=== PATIENT | male | born 1940 | race Caucasian/White ===

== ENCOUNTER 2022-05-10 00:33 | Day surgery (SDC) | payer MEDICARE, SELFPAY ==
[2022-05-10] VITALS (10 sets, daily range): BP systolic 113–138; BP diastolic 49–69; PULSE 56–107; RESP 12–20; TEMP 36–36.4; O2SAT 96–100; BMI 25.8
--- NOTE | 2022-05-10 07:25 | WPDHPUPDATE1 ---
History and Physical Update Update Date/Time: 05/10/22 07:25 History and Physical has been reviewed, including an updated exam of the patient. There are NO changes in the patient's condition. Risks, benefits, and alternatives have been discussed and questions answered. Patient agrees to proceed with procedure.
--- NOTE | 2022-05-10 08:34 | PC.NURSE ---
Report to the Outpatient Waiting Room, entrance under the green pavilion located off [facility], at time _1115_ on date _05/10/22_. Planned Procedure Time: _1:15 PM_. Time changes happen often and if your time is changed the preop area will call you the afternoon before. - You and your visitor will be asked to self-screen and do not enter if you have any COVID symptoms. - We encourage only one visitor and NO visitors under age 16 are allowed at this time. Your visitor will receive communication by the phone number that is given day of service. - The patient visitor is requested to social distance or may leave the building when not with patient due to restrictions. - A mask is required within the hospital. Patients may have clear liquids (water, carbonated beverages, clear teas, apple juice) until 3 hours prior to surgery (1015 AM) with a maximum of 20 ounces. - No food from midnight until time of surgery - Infants may have breast milk until 4 hours before surgery, formula 6 hours prior to surgery. - Children will be allowed to drink immediately following surgery. If applicable, please bring a bottle or sippy cup to assist with drinking. Juice, water, soda, and popsicles are readily available. For infants on formula, please bring formula the day of surgery. Pacifiers are allowed. Take the following medications with a SIP of water the morning of surgery: __AMLODIPINE, METOPROLOL__ Medications to discontinue per physician _PT STATES NOT RECEIVING MED INSTRUCTIONS - LAST ASPIRIN DOSE 05/09/22__ Date to take last dose Please no make-up, nail yoruba, hairspray, perfume, deodorant, or body powder the day of surgery. No jewelry (including any body piercings) or valuables the day of surgery, leave them at home. Please take a shower or bath the night before, or the morning of, surgery with an antibacterial soap. Wear comfortable, loose fitting clothing. Children are encouraged to wear pajamas. - Jewelry must be removed prior to entering the operating room. Rings and piercings that are not removed may be cut off. - The hospital will not accept responsibility for valuables. - Please leave all valuables, including medications, at home the day of surgery. If you are going home after surgery, a licensed bellman driver must drive you home. - NO public transportation without another adult. - We recommend that an adult stay with you for 24 hours following discharge. - We also recommend that you do not drive, make important decision, drink alcoholic beverages, or take any drugs that were not prescribed by your health care provider for at least 24 hours after your discharge time. For Pediatric surgeries, we recommend two adults accompany the child home. Follow any additional instructions given to you from your surgeon. If you or anyone in your household have experienced Covid symptoms in the past week, please notify your surgeon or the nurse liaison at the phone number below for possible testing. Telephone instructions given to ____PT and asked if any additional questions and then verbalized understanding. Patient advised to call surgeon office or pre surgery nurse liaison [phone] if any additional questions.
--- NOTE | 2022-05-10 10:52 | ECG_ITS ---
Measurements Intervals [place] Rate: 55 P: 63 ND: 208 QRS: 7 QRSD: 95 T: 52 QT: 400 QTc: 383 Interpretive Statements SINUS BRADYCARDIA EARLY PRECORDIAL R/S TRANSITION BORDERLINE ECG NO PREVIOUS ECG AVAILABLE FOR COMPARISON Electronically Signed On 05-10-2022 11:18:10 CDT by Aleks Renteria D.O.
[2022-05-10] MEDS: LACTATED RINGERS 1,000 ML 30 ML IV CONT ×2 (11:28→13:39)
--- NOTE | 2022-05-10 11:58 | WPDANESEPPF ---
Anes - Initial Pre Proc Eval Procedure: Operation Date: 05/10/22 13:15 Proposed Procedures p Flexible Cystoscopy - Alexis Latif MD s Trans Urethral Resection Bladder Tumor with Gemcitabine Instillation - Alexis Latif MD Date/Time: 05/10/22 11:58 Surgeon: Alexis Latif MD Pre Op Diagnosis: Bladder Tumors Patient Data Age: 81 Gender: M Height: 1.83 m Weight: 86.2 kg Last Vital Signs Temp 36.0 C L 05/10/22 11:33 Pulse 56 L 05/10/22 11:33 Resp 18 05/10/22 11:33 BP 138/68 05/10/22 11:33 Pulse Ox 100 05/10/22 11:33 O2 Del Method Room Air 05/10/22 11:33 Allergies Allergy/AdvReac Type Severity Reaction Status Date / Time Penicillins AdvReac Swelling Verified 05/10/22 11:14 Home Medications Medication Instructions Recorded Confirmed Type amlodipine 10 mg tablet 10 mg QAM 05/10/22 05/10/22 History aspirin 81 mg tablet,delayed 81 mg PO DAILY 05/10/22 05/10/22 History release doxycycline hyclate 20 mg tablet 20 mg BID 05/10/22 05/10/22 History evolocumab 140 mg/mL subcutaneous 140 mg subcut [id number] 05/10/22 05/10/22 History pen injector (America Sweeney) ezetimibe 10 mg tablet 10 mg QAM 05/10/22 05/10/22 History famotidine 40 mg tablet 40 mg DAILY 05/10/22 05/10/22 History lisinopril 10 mg tablet 10 mg QAM 05/10/22 05/10/22 History metoprolol tartrate 50 mg tablet 50 mg BID 05/10/22 05/10/22 History tamsulosin 0.4 mg capsule 0.4 mg PO DAILY 05/10/22 05/10/22 History Patient hx anesthesia problems: other (slow to awaken) Family hx anesthesia problems: none Results Review: All pre-operative results and documents have been reviewed as part of the pre-operative evaluation. [facility] Past Medical History Medical History CAD (coronary artery disease) GERD (gastroesophageal reflux disease) Hyperlipidemia Hypertension Surgical History Surgical History Stented coronary artery Social History Social History Smoking status: Former smoker Tobacco type: cigarettes Second hand tobacco smoke exposure: No Additional smoking assessment comments: STATES SMOKED SOME WHILE IN THE OVER 50YS AGO Alcohol intake: current Alcohol use details: STATES 6/MONTH Substance use: never Substance use type: does not use Living arrangements: with family Spiritual care concerns: No Anes - Eval Final PreProcedure Day of Procedure 05/10/22 11:58 Patient weight: overweight Heart: regular rate and rhythm Lungs: clear to auscultation and decreased breath sounds Airway: Mallampati scale class II Neurological: alert and oriented Last oral intake: >/= 8 hours ASA classification: III Emergent: no Anesthetic plan: proceed Anesthesia type and monitoring: general LMA and standard monitoring Results Review: All pre-operative results and documents have been reviewed as part of the pre-operative evaluation. Informed Consent: The patient's anesthetic plan and its attendant risks and benefits were discussed with the patient/family/POA. Questions were solicited and answers provided to the satisfaction of the patient/family/POA.
[2022-05-10] MEDS: ceFAZolin 2 GM/D5W 50 ML 2 GM/50 ML BAG IVPB (13:03)
[2022-05-10] MEDS: LIDOCAINE HCL 2% GEL UROJET 10 ML PKG MUCOUS MEM (13:12)
--- NOTE | 2022-05-10 13:35 | P.OP_ITS ---
Procedure Note - Detailed Date of Procedure 05/10/22 Pre-op Diagnosis Bladder cancer left posterior-lat. bladder wall. Post-op Diagnosis Same Procedure Performed TURBT (medium, 4cm) Surgeon Alexis Latif MD Anesthesia General Description of Procedure The patient was brought to the operative suite where he is prepped and draped in a routine sterile fashion while in the dorsal lithotomy position. This is done after the uneventful administration of systemic sedation. 2% Xylocaine jelly is introduced intraurethrally and allowed to stand for an appropriate period of time. A 24F resectoscope sheath was placed in the bladder and the bladder is circumferentially inspected carefully. 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 This area is resected in its entirety with an attempt made to include detrusor muscle for pathological evaluation of invasion. The base and periphery of this resected side is cauterized with a loop electrode. The bladder is emptied and the resectoscope was removed. The patient is taken to the recovery room having aixa erated this procedure well. Drains No Packing Yes Pathology Yes Complications No immediate complications Condition Stable
--- NOTE | 2022-05-10 13:38 | W.PM.PROC2 ---
Procedure Note - Detailed Date of Procedure 05/10/22 Pre-op Diagnosis Bladder Tumors Post-op Diagnosis Same Procedure Performed Gemcitabine installation into bladder Surgeon Alexis Latif MD Anesthesia None Description of Procedure With the patient in the supine position, a 16F Ng catheter is placed using sterile technique. Using a protective facemask, gown and double layer of gloves Gemcitabine 2gm in 100cc saline is administered through the catheter/into the bladder. The catheter is then plugged. Patient was instructed to lie supine x20min, then to roll both the left and right x20 min. each. Total dwell time will be 60 min., after which the bladder will be drained and catheter removed. Drains Yes Pathology None sent Complications No immediate complications Condition Stable
[2022-05-10] MEDS: SODIUM CHLORIDE 0.9% IV 23.7 ML, GEMCITABINE HCL 1,000 MG BLADDER ×2 (13:44→13:45)
[2022-05-10] MEDS: fentaNYL CITRATE INJ (*CRX) 100 MCG/2 ML VIAL 25 MCG IV PUSH (14:18)
[2022-05-10] MEDS: SODIUM CHLORIDE 0.9% IV 50 ML BAG 150 ML IRRIGATION (14:54)
== END 2022-05-10 15:55 | disposition home or self-care (01) ==
PROVIDERS: Visit Provider Urology
PROC: 0TBB8ZZ Excision of Bladder, Via Natural or Artificial Opening Endoscopic (ICD-10-PCS; CPT 52235; 2022-05-10 13:15)
DX: C67.8 Malignant neoplasm of overlapping sites of bladder (principal); I10 Essential (primary) hypertension; Z87.891 Personal history of nicotine dependence
CPT/HCPCS: 52235; 51720; 88305; 93005; J0690; J1100; J2405; J2704; J3010; J7120; J9201